=== PATIENT | male | born 1935 | race Hispanic/Latino ===

== ENCOUNTER → 2019-10-30 | Outpatient (CLI) | payer OTHER ==
[~2019-10-30] MED LIST: AMLO5TAB9 PO
== END | disposition home or self-care (01) ==
LOC: SHCH 12:40
PROVIDERS: ATTEND Internal Medicine Cardiovascular Disease
DX: I08.0 Rheumatic disorders of both mitral and aortic valves (principal); I48.0 Paroxysmal atrial fibrillation
CPT/HCPCS: 93306